=== PATIENT | male | born 1965 | race Caucasian/White ===

== ENCOUNTER → 2017-01-07 | Outpatient (CLI) | payer OTHER ==
[~2017-01-07] VITALS: Ht 185.4 cm; Wt 111.1 kg
[~2017-01-07] MED LIST: LIDOCAINE 2% INJ 100 MG/5 ML SDV (FOR ANES.) As Ordered ONE; NS 1,000 ML IV SCH; PROPOFOL 200 MG/20 ML VIAL As Ordered ONE; no medications
--- NOTE | 2017-01-07 12:11 | ROOR ---
Patient Name: Moises Staton Procedure Date: 01/07/2017 11:36 AM Date of : 1965 Age: 51 Room: [facility] Gender: Male Note Status: Finalized Procedure: Colonoscopy Indications: Screening for colorectal malignant neoplasm Providers: Vinicio Sanchez MD Referring MD: JOHNNA BECKFORD MD Requesting Provider: Medicines: Monitored Anesthesia Care Complications: No immediate complications. Procedure: Pre-Anesthesia Assessment: - Prior to the procedure, a History and Physical was performed, and patient medications and allergies were reviewed. The patient is competent. The risks and benefits of the procedure and the sedation options and risks were discussed with the patient. All questions were answered and informed consent was obtained. Patient identification and proposed procedure were verified by the physician, the nurse and the service administrator in the endoscopy suite. Mental Status Examination: alert and oriented. Airway Examination: normal oropharyngeal airway and neck mobility. Respiratory Examination: clear to auscultation. CV Examination: normal. Prophylactic Antibiotics: The patient does not require prophylactic antibiotics. Prior Anticoagulants: The patient has taken no previous anticoagulant or antiplatelet agents. ASA Grade Assessment: II - A patient with mild systemic disease. After reviewing the risks and benefits, the patient was deemed in satisfactory condition to undergo the procedure. The anesthesia plan was to use monitored anesthesia care (MAC). Immediately prior to administration of medications, the patient was re-assessed for adequacy to receive sedatives. The heart rate, respiratory rate, oxygen saturations, blood pressure, adequacy of pulmonary ventilation, and response to care were monitored throughout the procedure. The physical status of the patient was re-assessed after the procedure. The Colonoscope was introduced through the anus and advanced to the cecum, identified by appendiceal orifice and ileocecal valve. The colonoscopy was performed without difficulty. The patient tolerated the procedure well. The quality of the bowel preparation was good. Findings: The perianal and digital rectal examinations were normal. A diminutive polyp was found in the ascending colon. The polyp was sessile. The polyp was removed with a jumbo cold forceps. Resection and retrieval were complete. Estimated blood loss was minimal. A diminutive polyp was found in the sigmoid colon. The polyp was sessile. The polyp was removed with a jumbo cold forceps. Resection and retrieval were complete. Estimated blood loss was minimal. A 3 to 5 mm polyp was found in the rectum. The polyp was semi-pedunculated. The polyp was removed with a hot snare. Resection and retrieval were complete. Estimated blood loss: none. A diminutive polyp was found in the rectum. The polyp was semi-pedunculated. The polyp was removed with a hot snare. Resection and retrieval were complete. Estimated blood loss was minimal. The retroflexed view of the distal rectum and anal verge was normal and showed no anal or rectal abnormalities. Impression: - One diminutive polyp in the ascending colon, removed with a jumbo cold forceps. Resected and retrieved. - One diminutive polyp in the sigmoid colon, removed with a jumbo cold forceps. Resected and retrieved. - One 3 to 5 mm polyp in the rectum, removed with a hot snare. Resected and retrieved. - One diminutive polyp in the rectum, removed with a hot snare. Resected and retrieved. - The distal rectum and anal verge are normal on retroflexion view. Recommendation: - Discharge patient to home (ambulatory). - Telephone my office for pathology results in 2 weeks. - Repeat colonoscopy in 5 years for surveillance based on pathology results. Vinicio Sanchez MD Vinicio Sanchez MD 01/07/2017 12:11:05 PM This report has been signed electronically. Number of Addenda: 0 Note Initiated On: 01/07/2017 11:36 AM Estimated Blood Loss: Estimated blood loss was minimal.
[2017-01-07 12:55] VITALS: BP 131/82
== END ==
LOC: M OPP 10:49
PROVIDERS: ATTEND Surgery
DX: Z12.11 Encounter for screening for malignant neoplasm of colon (principal); D12.2 Benign neoplasm of ascending colon; D12.5 Benign neoplasm of sigmoid colon; K62.1 Rectal polyp; Z88.0 Allergy status to penicillin

== ENCOUNTER → 2019-11-07 | Outpatient (CLI) | payer OTHER ==
[~2019-11-07] MED LIST changes: +E-Z-GAS II EFFERVESCENT PACKET (SODIUM BICARB./CITRIC ACID/SIMETHICONE) As Ordered ONE; +E-Z-HD 98% w/w 340GM SUSP BTL As Ordered ONE; +E-Z-PAQUE 96% w/w SUSP 176GM BTL As Ordered ONE; -LIDOCAINE 2% INJ 100 MG/5 ML SDV (FOR ANES.) As Ordered ONE; -NS 1,000 ML IV SCH; -PROPOFOL 200 MG/20 ML VIAL As Ordered ONE
--- NOTE | 2019-11-07 17:32 | REP ---
Esophagram The procedure was performed under the direct supervision of Dr. Wright. The images were reviewed with Dr. Wright. 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 The superior mediastinal structures are midline. The heart size is within normal limits. The lungs are clear. Liquid barium and gas producing granules were given in the erect position as well as liquid barium in the prone oblique positions in order to perform a double contrast esophagram examination. The oral and pharyngeal stages of deglutition are unremarkable. There are esophageal transport there are tertiary waves demonstrated. There is no esophagitis. There is a sliding type hiatal hernia. There is a nonobstructing Schatzki's B ring. There is gastroesophageal reflux demonstrated to above the level of the cesar. Impression: 1. Tertiary waves 2. There is a sliding type hiatal hernia with a nonobstructing Schatzki's B ring. There is gastroesophageal reflux demonstrated to above the level of the cesar. 0.6 minutes of fluoro time was utilized for this procedure. Electronically Signed by MEDHAT Hyde 11/07/2019 04:16 P Electronically Signed by Brandon Wright MD 11/07/2019 05:23 P
== END ==
LOC: M RAD 10:31
PROVIDERS: ATTEND Allergy & Immunology
DX: K44.9 Diaphragmatic hernia without obstruction or gangrene (principal); K22.2 Esophageal obstruction; K21.9 Gastro-esophageal reflux disease without esophagitis